=== PATIENT | male | born 2000 | race Caucasian/White ===

== ENCOUNTER 2023-01-14 08:20 | Emergency (ER) | payer SELFPAY ==
[~2023-01-14] VITALS: Ht 154.9 cm; Wt 104.3 kg
[2023-01-14] MEDS ORDERED: ABILIFY10 MG PO ×2 (08:44→08:45)
== END 2023-01-14 10:53 | disposition home or self-care (01) ==
LOC: ED 08:20
DX: S93.401A Sprain of unspecified ligament of right ankle, initial encounter (principal); W18.39XA Other fall on same level, initial encounter; Y93.89 Activity, other specified; Y92.89 Other specified places as the place of occurrence of the external cause; Y99.8 Other external cause status

== ENCOUNTER → 2023-09-11 | Outpatient (CLI) | payer OTHER ==
[~2023-09-11] MED LIST: ABILIFY10 MG PO
[2023-09-11 08:32] LABS: BASO # 0.1 10*3/uL (0.0-0.1); BASO % 1.2 % (0.0-1.0); EOS # 0.3 10*3/uL (0.0-0.4); EOS % 6.8 % (1.0-4.0); LYMPH # 1.4 10*3/uL (1.3-4.4); LYMPH % 28.6 % (27.0-41.0); MONO # 0.3 10*3/uL (0.1-1.0); NEUT # 2.7 10*3/uL (2.3-7.9); NEUT % 56.2 % (47.0-73.0); WHITE BLOOD COUNT 4.8 10*3/uL (4.8-10.8)
[2023-09-11 09:03] LABS: CHOLESTEROL 172 mg/dL (<200); LDL CHOLESTEROL 117 mg/dL (9-159); TRIGLYCERIDES 77 mg/dl (<150)
== END | disposition home or self-care (01) ==
LOC: LAB 07:24
PROVIDERS: ATTEND Psychiatry & Neurology Psychiatry
DX: Z51.81 Encounter for therapeutic drug level monitoring (principal); Z79.899 Other long term (current) drug therapy